=== PATIENT | female | born 1930 | race Caucasian/White ===

== ENCOUNTER 2016-09-22 09:12 | Inpatient (IN) | payer MEDICARE, BC ==
[~2016-09-22] VITALS: Ht 167.6 cm; Wt 71.0 kg
== END 2016-09-26 14:45 | DRG 871 ==
LOC: ER 09:12 → ICU 14:59 → MED 09-25 18:51
PROVIDERS: ADMIT Internal Medicine
DX: A41.9 Sepsis, unspecified organism (principal); J69.0 Pneumonitis due to inhalation of food and vomit; J44.0 Chronic obstructive pulmonary disease with (acute) lower respiratory infection; R65.20 Severe sepsis without septic shock; Y95 Nosocomial condition; I48.91 Unspecified atrial fibrillation; D53.9 Nutritional anemia, unspecified; I10 Essential (primary) hypertension; G62.9 Polyneuropathy, unspecified; R60.0 Localized edema; E03.9 Hypothyroidism, unspecified; F32.9 Major depressive disorder, single episode, unspecified; M19.90 Unspecified osteoarthritis, unspecified site; M81.0 Age-related osteoporosis without current pathological fracture; K21.9 Gastro-esophageal reflux disease without esophagitis; K59.09 Other constipation; R51 Headache; H35.30 Unspecified macular degeneration; Z96.651 Presence of right artificial knee joint; Z90.49 Acquired absence of other specified parts of digestive tract; Z79.82 Long term (current) use of aspirin; Z79.899 Other long term (current) drug therapy; Z88.1 Allergy status to other antibiotic agents; Z88.8 Allergy status to other drugs, medicaments and biological substances; Z83.3 Family history of diabetes mellitus; Z82.49 Family history of ischemic heart disease and other diseases of the circulatory system; Z82.3 Family history of stroke; Z82.5 Family history of asthma and other chronic lower respiratory diseases; Z80.9 Family history of malignant neoplasm, unspecified; Z66 Do not resuscitate
CPT/HCPCS: 36415; 92610; 93306; 97162-GP; 97166; J1160; J1650; J3370; J7050; Q9967

== ENCOUNTER 2016-09-22 09:12 | Emergency (ER) | payer MEDICARE, BC | END 2016-09-22 14:58 | disposition critical access hospital (66) | LOC: ER 09:12 | DX: A41.9 Sepsis, unspecified organism (principal); J18.9 Pneumonia, unspecified organism; R65.20 Severe sepsis without septic shock; I48.91 Unspecified atrial fibrillation; R11.10 Vomiting, unspecified; R19.7 Diarrhea, unspecified; E03.9 Hypothyroidism, unspecified; J44.9 Chronic obstructive pulmonary disease, unspecified; F32.9 Major depressive disorder, single episode, unspecified; K21.9 Gastro-esophageal reflux disease without esophagitis; M19.90 Unspecified osteoarthritis, unspecified site; Z90.49 Acquired absence of other specified parts of digestive tract; Z88.0 Allergy status to penicillin; Z79.899 Other long term (current) drug therapy; Z79.82 Long term (current) use of aspirin; Z88.1 Allergy status to other antibiotic agents | CPT/HCPCS: 36415; 51701; 96361; 96365; 96367; Q9967 ==